=== PATIENT | female | born 1940 | race Caucasian/White ===

== ENCOUNTER 2018-03-07 10:16 | Inpatient (IN) | payer OTHER ==
[~2018-03-07] VITALS: Ht 152.4 cm; Wt 68.0 kg
[2018-03-07] MEDS ORDERED: IBESARTAN PO (10:37)
[2018-03-07] MEDS ORDERED: CARDURA XL4 MG PO (10:37)
== END 2018-03-11 10:11 | disposition home or self-care (01) | DRG 281 ==
LOC: ER 10:16 → MEDI 19:55 → MEDJ 03-09 13:44
PROC: 3E0F7GC Introduction of Other Therapeutic Substance into Respiratory Tract, Via Natural or Artificial Opening (ICD-10-PCS; principal; 2018-03-07)
PROC: B246ZZZ Ultrasonography of Right and Left Heart (ICD-10-PCS; 2018-03-08)
PROC: 4A12X4Z Monitoring of Cardiac Electrical Activity, External Approach (ICD-10-PCS; 2018-03-08)
PROC: 4A12XM4 Monitoring of Cardiac Stress, External Approach (ICD-10-PCS; 2018-03-09)
PROC: 3E033HZ Introduction of Radioactive Substance into Peripheral Vein, Percutaneous Approach (ICD-10-PCS; 2018-03-09)
DX: I21.A1 Myocardial infarction type 2 (principal); I47.1 Supraventricular tachycardia; I11.9 Hypertensive heart disease without heart failure; E03.8 Other specified hypothyroidism; I34.0 Nonrheumatic mitral (valve) insufficiency; J44.9 Chronic obstructive pulmonary disease, unspecified

== ENCOUNTER 2018-05-03 22:06 | Emergency (ER) | payer OTHER ==
[~2018-05-03] VITALS: Ht 149.9 cm; Wt 63.5 kg
[~2018-05-03 22:06] MED LIST: CARDURA XL4 MG PO; IBESARTAN PO
[2018-05-03] MEDS ORDERED: OLMESARTAN MEDO20 MG (22:25)
[2018-05-03] MEDS ORDERED: CARDURA XL4 MG (22:25)
[2018-05-04] MEDS ORDERED: ZYNCOF 20-400120 ML PO (00:59)
[2018-05-04] MEDS ORDERED: XOPENEX0.63 MG/3 IH (00:59)
== END 2018-05-04 00:52 | disposition home or self-care (01) ==
LOC: ER 22:06 → EDBD 22:46 → ER 22:46
DX: J11.1 Influenza due to unidentified influenza virus with other respiratory manifestations (principal)